=== PATIENT | male | born 1965 | race Caucasian/White ===

== ENCOUNTER 2017-04-04 11:43 | Outpatient (CLI) | payer BC, OTHER ==
[2013-07-07 00:46] VITALS: BP 106/72
== END 2017-04-04 11:44 ==
LOC: CARD 11:43
PROVIDERS: ATTEND Internal Medicine Cardiovascular Disease
DX: R00.2 Palpitations (principal); I10 Essential (primary) hypertension; E78.5 Hyperlipidemia, unspecified
CPT/HCPCS: 99204